=== PATIENT | female | born 1990 | race Caucasian/White ===

== ENCOUNTER 2018-08-06 20:18 | Emergency (ER) | payer MEDICAID ==
[~2018-08-06] VITALS: Ht 162.6 cm; Wt 65.0 kg
[2018-08-06] MEDS ORDERED: MORPHINE SULFATE 10 MG/ML CPJ IM ONE (20:45)
[2018-08-06] MEDS ORDERED: ONDANSETRON HCL 4MG/2ML INJ IM ONE (20:45)
[2018-08-06 22:41] VITALS: BP 130/87
[2018-08-06] MEDS ORDERED: KETOROLAC 30MG/ML VIAL IV ONE (22:45)
== END 2018-08-06 22:57 | disposition home or self-care (01) ==
LOC: ER 20:18
DX: S90.512A Abrasion, left ankle, initial encounter (principal); S50.311A Abrasion of right elbow, initial encounter; Z98.890 Other specified postprocedural states; Z98.51 Tubal ligation status; W18.39XA Other fall on same level, initial encounter; Y93.89 Activity, other specified; Y92.89 Other specified places as the place of occurrence of the external cause; Y99.8 Other external cause status
CPT/HCPCS: 29515; 73610; 81025; 96372; 96374; 99283; J1885; J2270; J2405; Z7610